=== PATIENT | male | born 1990 | race Caucasian/White ===

== ENCOUNTER → 2016-10-09 | Outpatient (CLI) | payer OTHER ==
--- NOTE | 2016-10-09 10:15 | DX ---
Right knee series 3 views. History: Increasing right knee pain. Previous medial meniscal repair 2010. Comparison: The prior study of November 12, 2010. Findings: Osseous structures are intact without fracture. The knee joint space is normal. No osteophy kuldip are seen. No intra-articular calcifications are evident. There is a mild effusion in the suprapat goyo bursa. Impression: Mild effusion suprapatella bursa. Otherwise, normal right knee series.
== END ==
LOC: BMCIMAGING 09:17
PROVIDERS: ATTEND Physician Assistant
DX: M25.561 Pain in right knee (principal)